=== PATIENT | male | born 1985 | race Caucasian/White ===

== ENCOUNTER 2019-07-28 10:32 | Emergency (ER) | payer SELFPAY ==
[~2019-07-28] VITALS: Ht 182.9 cm; Wt 89.4 kg
[2019-07-28 10:40] VITALS: BP 139/76
[2019-07-28] MEDS ORDERED: AZIT250T PO (10:47)
--- NOTE | 2019-07-28 10:47 | PHYS DOC ---
Adult General Chief Complaint Chief Complaint: COUGH HPI HPI Patient is a 33-year-old male who presents with complaint of productive cough, chest soreness, congestion and nasal drainage for the last 4 days. He states that he is getting some soreness in his chest. He denies any fever. He does indicate he has had a little bit of nausea but no vomiting or diarrhea.[] Review of Systems Review of Systems Constitutional: Denies fever or chills [] HENT: Positive nasal congestion without sore throat [] Respiratory: Positive cough without shortness of breath [] Cardiovascular: No additional information not addressed in HPI [] GI: Denies abdominal pain, vomiting or diarrhea [] Integument: Denies rash or skin lesions [] Allergies Allergies Allergies Coded Allergies Type Severity Reaction Last Updated Verified No Known Drug Allergies 07/28/19 No Physical Exam Physical Exam Constitutional: Well developed, well nourished, no acute distress, non-toxic appearance. [] Cardiovascular: Regular rate and rhythm[] Lungs & Thorax: Bilateral breath sounds clear to auscultation [] Skin: Warm, dry, no erythema, no rash. [] Extremities: No tenderness, no cyanosis, no clubbing, ROM intact, no edema. [] Neurologic: Alert and oriented X 3, no focal deficits noted. [] EKG EKG [] Radiology/Procedures Radiology/Procedures [] Course & Med Decision Making Course & Med Decision Making Pertinent Labs and Imaging studies reviewed. (See chart for details) [] Dragon Disclaimer Dragon Disclaimer This electronic medical record was generated, in whole or in part, using a voice recognition dictation system. Departure Departure: Impression: Primary Impression: Acute bronchitis Disposition: 01 HOME, SELF-CARE Condition: STABLE Referrals: GARY SEGURA DO (PCP) Patient Instructions: Acute Bronchitis Scripts Azithromycin (ZITHROMAX) 250 Mg Tablet 1 PKG PO UD for infection, #6 TAB Prov: BALDEMAR SALTER Jr. DO 07/28/19 Problem Qualifiers Primary Impression: Acute bronchitis Bronchitis organism: unspecified organism Qualified Codes: J20.9 - Acute bronchitis, unspecified BALDEMAR SALTER Jr. DO Jul 28, 2019 10:47
== END 2019-07-28 10:52 | disposition home or self-care (01) ==
LOC: ER 10:32
DX: J20.9 Acute bronchitis, unspecified (principal)
CPT/HCPCS: 99283